=== PATIENT | male | born 1975 | race Caucasian/White ===

== ENCOUNTER 2019-12-13 11:01 | Emergency (ER) | payer SELFPAY ==
[2019-12-13 11:33] VITALS: BP 133/78
[2019-12-13] MEDS ORDERED: DEXAMETHASONE 10 MG/ML VIAL PO STA (12:31)
[2019-12-13] MEDS ORDERED: CHERRY SYRUP 10 ML UDC PO ONE (12:31)
[2019-12-13] MEDS ORDERED: KETOROLAC 60 MG/2 ML VIAL IM STA (12:31)
--- NOTE | 2019-12-13 12:38 | ED Physician Documentation ---
PD HPI BACK PAIN - Stated complaint Stated Complaint: LOW BACK,LT LEG PX - Chief complaint Chief Complaint: Back Pain - History obtained from History obtained from: Patient - History of Present Illness Timing - onset: How many weeks ago (2) Timing - duration: Weeks (2) Timing - details: Gradual onset, Still present Location: Lower, Left Quality: Pain, Spasm, Sharp, Similar to prior episodes Associated symptoms: No: Fever, Weakness, Numbness, Incontinent of urine, Unable to urinate, Hematuria, Incontinent of stool Improves with: Rest, Ice, Position, Meds Worsened by: Movement Similar symptoms before: Diagnosis (back spasm) Recently seen: Not recently seen - Additional information Additional information: 44-year-old male has developed some pain in his left lower back extending into the buttocks and down the left leg. He has pain in his left leg when he is walking from about the mid thigh to just below the knee. He denies any numbness or tingling distally. Review of Systems Constitutional: denies: Fever Eyes: denies: Decreased vision Ears: denies: Ear pain Nose: denies: Congestion Throat: denies: Sore throat Respiratory: denies: Cough GI: denies: Vomiting : denies: Dysuria PD PAST MEDICAL HISTORY - Past Medical History Past Medical History: No - Past Surgical History Past Surgical History: Yes Ortho: Shoulder arthroplasty, Spine surgery - Present Medications Home Medications: Ambulatory Orders Medication Instructions Recorded Confirmed Cyclobenzaprine [Flexeril] 10 mg PO TID PRN #20 tablet 12/13/19 Hydrocodone/Acetaminophen 1 - 2 each PO Q6H PRN #14 tablet 12/13/19 [Hydrocodon-Acetaminophen 5-325] - Allergies Allergies/Adverse Reactions: Allergies Allergy/AdvReac Type Severity Reaction Status Date / Time No Known Drug Allergies Allergy Verified 12/13/19 11:29 - Social History Does the pt smoke?: No Smoking Status: Never smoker - Immunizations Immunizations are current?: Yes PD ED PE NORMAL - Vitals Vital signs reviewed: Yes (Hypertensive) - General General: Alert and oriented X 3, No acute distress, Well developed/nourished - HEENT HEENT: Atraumatic, PERRL, EOMI - Respiratory Respiratory: No respiratory distress - Back Back: No CVA TTP, No spinal TTP, Other (Minimal point tenderness to the lower lumbar paraspinous muscles extending into the left sciatic notch.) - Derm Derm: Normal color, Warm and dry, No rash - Extremities Extremities: No deformity, No edema, No calf tenderness / cord - Neuro Neuro: Alert and oriented X 3, insole lip turner 2-12 intact, No motor deficit, No sensory deficit, Normal speech Eye Opening: Spontaneous Motor: Obeys Commands Verbal: Oriented GCS Score: 15 - Psych Psych: Normal mood, Normal affect Results - Vitals Vitals: Vital Signs - 24 hr 12/13/19 11:27 Temperature 36.4 C L Heart Rate 65 Respiratory 16 Rate Blood Pressure 133/78 H O2 Saturation 100 Oxygen O2 Source Room air PD MEDICAL DECISION MAKING - ED course Complexity details: considered differential, d/w patient ED course: 44-year-old male with acute left-sided sciatica is administered dexamethasone 10 mg orally and 60 mg of Toradol IM. We will place him on some pain medication a muscle relaxant. Departure - Departure Disposition: 01 Home, Self Care Clinical Impression: Sciatica Qualifiers: Laterality: left Qualified Code(s): M54.32 - Sciatica, left side Condition: Stable Instructions: ED Sciatica Follow-Up: [facility] [Provider Group] Prescriptions: Cyclobenzaprine [Flexeril] 10 mg PO TID PRN #20 tablet PRN Reason: Spasms Hydrocodone/Acetaminophen [Hydrocodon-Acetaminophen 5-325] 1 - 2 each PO Q6H PRN #14 tablet PRN Reason: pain
== END 2019-12-13 13:03 | disposition home or self-care (01) ==
LOC: ED 11:01
DX: M54.32 Sciatica, left side (principal)
CPT/HCPCS: 96372; 99283; 99284; A9270

== ENCOUNTER 2020-06-19 12:27 | Emergency (ER) | payer SELFPAY ==
[2020-06-19 12:46] VITALS: BP 135/87
[2020-06-19] MEDS ORDERED: cefTRIAXone 1 GM VIAL IM STA (12:52)
[2020-06-19] MEDS ORDERED: LIDOCAINE 1% 2 ML VIAL MC ONE (12:52)
[2020-06-19] MEDS ORDERED: DOXYCYCLINE 100 MG TABLET PO STA (12:52)
--- NOTE | 2020-06-19 12:54 | ED Physician Documentation ---
History of Present Illness - Stated complaint Stated Complaint: MALE - Chief complaint Chief Complaint: General - History obtained from History obtained from: Patient - Additonal information Additional information: He was treated a couple weeks ago with Rocephin and azithromycin for urethritis. Subsequently was positive for gonorrhea. He has not had sex in the interim, complains of recurrent burning and dysuria. Review of Systems Constitutional: reports: Reviewed and negative Eyes: reports: Reviewed and negative Cardiac: reports: Reviewed and negative Respiratory: reports: Reviewed and negative PD PAST MEDICAL HISTORY - Past Surgical History Past Surgical History: Yes Ortho: Shoulder arthroplasty, Spine surgery - Present Medications Home Medications: Ambulatory Orders Medication Instructions Recorded Confirmed Doxycycline Hyclate 100 mg PO BID #20 capsule 06/19/20 - Allergies Allergies/Adverse Reactions: Allergies Allergy/AdvReac Type Severity Reaction Status Date / Time No Known Drug Allergies Allergy Verified 06/19/20 12:46 - Social History Does the pt smoke?: No Smoking Status: Never smoker Does the pt drink ETOH?: Yes - Immunizations Immunizations are current?: Yes PD ED PE NORMAL - Vitals Vital signs reviewed: Yes - General General: Alert and oriented X 3, No acute distress - Abdomen Abdomen: Normal bowel sounds, Soft, Non tender - Neuro Neuro: Alert and oriented X 3, Normal speech Results - Vitals Vitals: Vital Signs - 24 hr 06/19/20 12:35 Temperature 37.2 C Heart Rate 78 Respiratory 16 Rate Blood Pressure 135/87 H O2 Saturation 97 Oxygen O2 Source Room air PD MEDICAL DECISION MAKING - ED course ED course: Potential recurrence of gonorrhea despite initial appropriate treatment, will treat with full 1 g of Rocephin and 10 days of doxycycline. Departure - Departure Disposition: 01 Home, Self Care Clinical Impression: Urethritis Condition: Good Record reviewed to determine appropriate education?: Yes Instructions: ED STD Male Treated Prescriptions: Doxycycline Hyclate 100 mg PO BID #20 capsule Comments: We will call if STD tests are positive, do not go out in the sun too much while on the day 10 to make you sun sensitive. Return if worse.
== END 2020-06-19 13:08 | disposition home or self-care (01) ==
LOC: ED 12:27
DX: N34.2 Other urethritis (principal)
CPT/HCPCS: 87491; 87591; 96372; 99283; A9270; 87661